=== PATIENT | female | born 1980 | race Caucasian/White ===

== ENCOUNTER 2019-10-10 08:20 | Inpatient (IN) | payer MEDICAID ==
[~2019-10-10] VITALS: Ht 152.4 cm; Wt 67.6 kg
[~2019-10-10 08:20] MED LIST: DOCU-299 PO; FERR325E14 PO; IBUP-1842 PO; PREN-385 PO
[2019-10-10 12:13] LABS: BASOPHILS % (AUTO) 0.5 % (0.0-2.0); EOSINOPHILS # (AUTO) 0.1 K/uL (0-0.4); EOSINOPHILS % (AUTO) 1.4 % (0.0-4.0); HEMATOCRIT 36.6 % (36-48); HEMOGLOBIN 12.1 g/dL (12.0-16.0); LYMPHOCYTES # (AUTO) 1.6 K/uL (2.5-16.5); LYMPHOCYTES % (AUTO) 21.9 % (20.5-51.1); MEAN CORPUSCULAR HEMOGLOBIN 31 pg (27-31); MEAN CORPUSCULAR HGB CONC 33 g/dL (33-37); MEAN CORPUSCULAR VOLUME 93.3 fL (80-94); MONOCYTES # (AUTO) 0.5 K/uL (0.8-1.0); NEUTROPHILS # (AUTO) 5.1 K/uL (1.8-7.7); NEUTROPHILS % (AUTO) 69.2 % (42.2-75.2); PLATELET COUNT (AUTO) 218 K/uL (140-450); RED BLOOD CELL COUNT(AUTO) 3.92 MIL/uL (4.20-5.40); RED CELL DISTRIBUTION WIDTH 14.7 % (11.6-13.7); WHITE BLOOD COUNT (AUTO) 7.3 K/uL (4.8-10.8)
[2019-10-10 12:25] LABS: ALBUMIN 2.4 g/dL (3.4-5.0); ANION GAP 14.4 (8-16); CREATININE 0.4 mg/dL (0.6-1.3); POTASSIUM 3.4 mmol/L (3.5-5.1); TOTAL BILIRUBIN 0.3 mg/dL (0.0-1.0)
[2019-10-10 12:55] VITALS: BP 112/66
[2019-10-10] MEDS ORDERED: ONDANSETRON 4 MG/2 ML VIAL ONE (13:40)
[2019-10-10 14:30] LABS: APPEARANCE,URINE CLEAR (CLEAR); BILIRUBIN,URINE NEGATIVE (NEGATIVE); BLOOD, URINE NEGATIVE (NEGATIVE); COLOR,URINE YELLOW (YELLOW); LEUKOCYTE ESTERASE ,URINE 2+ (NEGATIVE); NITRITE, URINE NEGATIVE (NEGATIVE); UGLUCOSE NEGATIVE (NEGATIVE)
[2019-10-10 14:35] LABS: RBC,URINE 0-5 /HPF (0-5)
[2019-10-10] MEDS ORDERED: OXYTOCIN 20 UNITS in LACTATED RINGERS 1,000 ML IV SCH (14:42)
[2019-10-10] MEDS ORDERED: diphenhydrAMINE 50 MG/ML VIAL IVP PRN (14:45)
[2019-10-10] MEDS ORDERED: KETOROLAC 30 MG/ML VIAL IVP PRN (14:45)
[2019-10-10] MEDS ORDERED: NALOXONE 0.4 MG/ML VIAL IVP PRN ×2 (14:45)
[2019-10-10] MEDS ORDERED: OXYTOCIN 20 UNITS/LR PREMIX 1,000 ML IV ONE ×2 (16:07→22:40)
[2019-10-10] MEDS ORDERED: MEASLES, MUMPS, AND RUBELLA 1 VIAL SQVAC PRN (16:45)
[2019-10-10] MEDS ORDERED: HYDROmorphone 1 MG/ML AMP IVP PRN (16:45)
[2019-10-10] MEDS: guaiFENesin DM 200/20 MG-10 ML 10 ML UDC PO SCH ×2 (18:12→23:57)
[2019-10-10] MEDS: OXYTOCIN 20 UNITS in LACTATED RINGERS 1,000 ML IV SCH (22:58)
[2019-10-11] MEDS: guaiFENesin DM 200/20 MG-10 ML 10 ML UDC PO SCH ×3 (06:00→18:23)
[2019-10-11] MEDS ORDERED: OXYTOCIN 20 UNITS/LR PREMIX 1,000 ML IV ONE (06:40)
[2019-10-11] MEDS: OXYTOCIN 20 UNITS in LACTATED RINGERS 1,000 ML IV SCH (06:56)
[2019-10-11 08:55] LABS: BASOPHILS # (AUTO) 0.1 K/uL (0.00-0.22); BASOPHILS % (AUTO) 0.9 % (0.0-2.0); EOSINOPHILS # (AUTO) 0.1 K/uL (0-0.4); EOSINOPHILS % (AUTO) 1.4 % (0.0-4.0); HEMOGLOBIN 11.2 g/dL (12.0-16.0); LYMPHOCYTES % (AUTO) 12.4 % (20.5-51.1); MEAN CORPUSCULAR HEMOGLOBIN 31 pg (27-31); MEAN CORPUSCULAR HGB CONC 35 g/dL (33-37); MEAN CORPUSCULAR VOLUME 89.3 fL (80-94); MONOCYTES # (AUTO) 0.5 K/uL (0.8-1.0); MONOCYTES % (AUTO) 6.8 % (1.7-9.3); NEUTROPHILS # (AUTO) 6.2 K/uL (1.8-7.7); NEUTROPHILS % (AUTO) 78.5 % (42.2-75.2); PLATELET COUNT (AUTO) 205 K/uL (140-450); RED BLOOD CELL COUNT(AUTO) 3.58 MIL/uL (4.20-5.40); RED CELL DISTRIBUTION WIDTH 14.1 % (11.6-13.7); WHITE BLOOD COUNT (AUTO) 7.9 K/uL (4.8-10.8)
[2019-10-11] MEDS: KETOROLAC 30 MG/ML VIAL IVP PRN (10:41)
[2019-10-11] MEDS ORDERED: ACETAMINOPHEN 325 MG TAB PO PRN (22:00)
[2019-10-12] MEDS: KETOROLAC 30 MG/ML VIAL IVP PRN (04:13)
[2019-10-12] MEDS: guaiFENesin DM 200/20 MG-10 ML 10 ML UDC PO SCH ×4 (06:03→17:34)
[2019-10-12] MEDS: SIMETHICONE 80 MG TAB.CHEW PO SCH ×3 (08:20→17:33)
[2019-10-12] MEDS: BISACODYL 5 MG TABEC PO SCH (08:20)
[2019-10-12] MEDS: DOCUSATE SODIUM 100 MG GELCAP PO SCH (08:20)
--- NOTE | 2019-10-12 09:02 | NUR ---
PATIENT HAS BEEN SCREENED AND CATEGORIZED LOW NUTRITION RISK. PATIENT WILL BE SEEN WITHIN 7 DAYS OF ADMISSION. 10/16/[address]
[2019-10-12] MEDS ORDERED: SODIUM PHOSPHATE 118 ML ENEM RC PRN (09:45)
[2019-10-13] MEDS: IBUPROFEN 600 MG TAB PO PRN ×2 (03:33→13:54)
[2019-10-13] MEDS: guaiFENesin DM 200/20 MG-10 ML 10 ML UDC PO SCH ×4 (07:02→17:39)
[2019-10-13] MEDS: BISACODYL 5 MG TABEC PO SCH (08:40)
[2019-10-13] MEDS: SIMETHICONE 80 MG TAB.CHEW PO SCH ×3 (08:40→17:39)
[2019-10-13] MEDS: DOCUSATE SODIUM 100 MG GELCAP PO SCH (08:40)
[2019-10-14] MEDS: guaiFENesin DM 200/20 MG-10 ML 10 ML UDC PO SCH ×2 (00:21→12:12)
[2019-10-14] MEDS: BISACODYL 5 MG TABEC PO SCH (09:24)
[2019-10-14] MEDS: SIMETHICONE 80 MG TAB.CHEW PO SCH (09:25)
[2019-10-14] MEDS: DOCUSATE SODIUM 100 MG GELCAP PO SCH (09:25)
== END 2019-10-14 15:32 | disposition home or self-care (01) | DRG 540 ==
LOC: OBSVTOIN 08:20 → MLD 08:20 → MFCC 16:50
PROVIDERS: ADMIT Obstetrics & Gynecology; ATTEND Obstetrics & Gynecology
PROC: 10D00Z1 Extraction of Products of Conception, Low, Open Approach (ICD-10-PCS; principal; 2019-10-14)
DX: O34.211 Maternal care for low transverse scar from previous cesarean delivery (principal); Z37.0 Single live birth; Z90.49 Acquired absence of other specified parts of digestive tract; Z3A.39 39 weeks gestation of pregnancy
CPT/HCPCS: 36415; 51702; 80053; 81001; 85025; 86592; 86886; 86900; 86901; 87086; J0690; J1885; J2405; J2590; J7060; J7120